=== PATIENT | female | born 1970 | race Caucasian/White ===

== ENCOUNTER 2017-11-30 15:11 | Emergency (ER) | payer OTHER ==
[~2017-11-30] VITALS: Ht 162.6 cm; Wt 74.0 kg
[~2017-11-30 15:11] MED LIST: HYDR-5688 PO; LAMO1TAB21 PO; LAMO200T35 PO; MIRA1TAB3 PO; MULT-506 PO
[2017-11-30 15:18] VITALS: TEMP 37.3; Ht 162.6 cm; Wt 74.0 kg
[2017-11-30] MEDS ORDERED: NAPR1TAB9 PO (15:41)
[2017-11-30] MEDS ORDERED: SUMA50TA15 PO (15:41)
[2017-11-30 16:20] VITALS: BP 180/88; PULSE 70; O2SAT 100
--- NOTE | 2017-11-30 17:25 | EMERGENCY ROOM VISIT NOTE ---
History First contact with patient: 15:18 Chief Complaint: OTHER COMPLAINT Stated Complaint: FIT FOR DUTY History of Present Illness The patient is a 47 year old female who presents to the Emergency Room for a physical for fit for duty. The patient's past medical history includes seizure disorder for which she is on Lamictal. She has not had a seizure for 9 years. She is also on Imitrex for migraines on an as-needed basis. The patient does not smoke she drinks a glass of wine on occasion. The patient also states that she takes Aleve at night to help her sleep. The patient only complaint is that she has some anxiety and decreased energy. She states she has to get up throughout the night to go to the bathroom. The patient states she had a head injury as a child and had to have scar tissue removed later after the injury occurred. This injury had precipitated her seizure disorder. The patient currently does not have a headache. She denies any visual changes dizziness, chest pain, shortness of breath, nausea, vomiting or change in bowel habits. The patient denies any muscle weakness. Review of Systems 10 system review was performed and was negative unless stated otherwise history of present illness. Past Medical/Surgical History Medical Problems: (1) Abdominal pain (2) Pneumonia, Organism Nos (3) Stress incontinence Surgical Problems: (1) H/O cataract extraction Seizure disorder, migraines Social History Smoking Status: Never Smoker Alcohol Use: occasionally Drug Use: none Marital Status: Occupation Status: employed Current/Historical Medications Scheduled Lamotrigine (Lamotrigine), 100 MG PO QAM Lamotrigine (Lamictal), 200 MG PO HS Multivitamin (Multivitamin), 1 TAB PO QAM Naproxen (Aleve), 220 MG PO HS Scheduled PRN Sumatriptan Succinate (Imitrex), 50 MG PO PRN PRN for Migraine Physical Exam Vital Signs Date Time Temp Pulse Resp B/P (MAP) Pulse Ox O2 Delivery O2 Flow Rate FiO2 11/30/17 16:20 70 20 180/88 100 11/30/17 15:18 37.3 79 20 153/109 100 Room Air Physical Exam GENERAL: 47-year-old female appears in no acute distress. MENTAL STATUS: Patient is alert and oriented x3. The patient is slightly anxious and does not know why she is having this evaluation. She becomes tearful when talking about it. HEAD: Atraumatic, nontender to palpation throughout. No bony abnormality noted. EYES: PERRLA. EOMs intact. EARS: Canals clear. TMs without hemotympanum noted. NECK: Supple, no lymphadenopathy noted. No carotid bruits noted. Thyroid without enlargement or nodularity. LUNGS: Clear auscultation without wheezes rales or rhonchi. CARDIAC: Regular rate and rhythm without murmur. Pulses is full and equal throughout. ABDOMEN: Positive bowel sounds all 4 quadrants. Soft, nontender to palpation without organomegaly or masses. NEURO: Grossly intact. SPINE: Entire spine nontender to palpation. Full range of motion no cervical and lumbar without pain. SKIN: No ecchymosis, abrasions or laceration noted throughout. LOWER EXTREMITIES: No cyanosis or edema noted. Medical Decision & Procedures Laboratory Results Test 11/30/17 15:45 Thyroid Stimulating Hormone (TSH) 5.800 uIu/ml (0.300-4.500) ED Course The patient was evaluated. TSH was ordered and was elevated at 5.8. [employer] will inform the patient of the findings and will follow-up with her family doctor. Medical Decision The patient is medically cleared to perform her job. Differential diagnosis include anxiety, panic attack, hyperthyroidism [place] Drug Monitoring Program Search Results: patient reviewed within database Medication Reconcilliation Current Medication List: was personally reviewed by me Blood Pressure Screening Patient's blood pressure: Normal blood pressure Impression Primary Impression: Anxiety Additional Impression: Elevated TSH Departure Information Dispostion Home / Self-Care Condition GOOD Referrals Analisa Maki (PCP) Forms HOME CARE DOCUMENTATION FORM, IMPORTANT VISIT INFORMATION, WORK / SCHOOL INSTRUCTIONS Patient Instructions [employer] Additional Instructions Continue current medications as prescribed. Recommend follow-up with the family doctor for elevated TSH for further evaluation for possible hyperthyroidism. Problem Qualifiers
== END 2017-11-30 16:20 | disposition home or self-care (01) ==
LOC: EDBD 15:11 → EDSEX 15:11 → EEVIPCON 15:13 → C.EDD 15:13
DX: Z02.1 Encounter for pre-employment examination (principal); F41.9 Anxiety disorder, unspecified; R94.6 Abnormal results of thyroid function studies; G40.909 Epilepsy, unspecified, not intractable, without status epilepticus; G43.909 Migraine, unspecified, not intractable, without status migrainosus

== ENCOUNTER → 2018-02-09 | Outpatient (CLI) | payer OTHER ==
[~2018-02-09] MED LIST changes: -HYDR-5688 PO; -MIRA1TAB3 PO; +NAPR1TAB9 PO; +SUMA50TA15 PO
--- NOTE | 2018-02-09 09:07 | DIAGNOSTIC IMAGING REPORT ---
L FOOT MIN 3 VIEWS ROUTINE HISTORY: 48 years-old Female [id number] acute left foot pain COMPARISON: None available TECHNIQUE: 3 views of the left foot FINDINGS: Bipartite medial hallux sesamoid. Mild marginal spurring of the hallux sesamoids with the plantar surface of the first metatarsal head. There is no acute fracture, or dislocation. Minimal joint space narrowing of the interphalangeal joints. Type II accessory navicular. Soft tissues are unremarkable without opaque foreign body. IMPRESSION: No acute fracture or dislocation. The above report was generated using voice recognition software. It may contain grammatical, syntax or spelling errors. Electronically signed by: Ermias Singh M.D. 02/09/2018 9:06 AM Dictated Date/Time: 02/09/2018 9:05 AM
== END | disposition home or self-care (01) ==
LOC: C.RAD 08:04
PROVIDERS: ATTEND Family Medicine
DX: S90.32XA Contusion of left foot, initial encounter (principal); X58.XXXA Exposure to other specified factors, initial encounter; Z13.220 Encounter for screening for lipoid disorders

== ENCOUNTER 2018-05-21 07:48 | Emergency (ER) | payer OTHER, BC ==
[~2018-05-21] VITALS: Ht 154.9 cm; Wt 76.0 kg
[2018-05-21 07:52] VITALS: TEMP 36.7; Ht 154.9 cm; Wt 76.0 kg
[2018-05-21] MEDS ORDERED: RANITIDINE HCL 150 MG TAB PO STA (08:11)
[2018-05-21] MEDS ORDERED: RANI150T3 PO (08:13)
[2018-05-21] MEDS ORDERED: PRED20TA2 PO (08:13)
[2018-05-21 08:18] VITALS: BP 138/80; PULSE 88; O2SAT 98
--- NOTE | 2018-05-21 08:31 | EMERGENCY ROOM VISIT NOTE ---
ED Visit Note First contact with patient: 07:53 CHIEF COMPLAINT: Skin rash HISTORY OF PRESENT ILLNESS: This 48 year old patient presents to the emergency department and states they have had swelling and redness and a rash to her arms and chin. The rash itches quite a bit. The patient has been outside in the yard or the babb recently where there could have been exposure to poison daisy plants. No fever and no URI symptoms. No shortness of breath. No involvement of the mouth, ears, nose, or eyes. REVIEW OF SYSTEMS: A 6 system review of systems was completed with positives and pertinent negatives listed in the HPI. ALLERGIES: Carbamazepine, Phenobarbital, Sulfa MEDICATIONS: See nursing notes PMH: Poison daisy in the past SOCIAL HISTORY: employed at [employer], lives with PHYSICAL EXAM: Vital Signs: See nurses' notes, vital signs stable. GENERAL: 48 year old female, in no acute distress, well developed, well nourished. SKIN : There are several linear patches of erythematous lesions, some with small vesicles bilaterally to the arms and two dime sized patches to the neck. The lips, throat, nose, ears, and eyeballs are not involved. No signs of infection. There is no respiratory distress or cough. ED COURSE: Offered pt benadryl which she refused, she is requesting Prednisone and Zantac. She will be placed on a prednisone taper DIAGNOSIS: Rheus dermatitis DISCHARGE INSTRUCTIONS & TREATMENT: Prednisone - see discharge instructions for dosing schedule. See your own physician or return here if that is not possible for re-evaluation if the rash does not seem to be improving over the next 4 days.
== END 2018-05-21 08:18 | disposition home or self-care (01) ==
LOC: C.EDB 07:49
DX: L23.7 Allergic contact dermatitis due to plants, except food (principal)